=== PATIENT | male | born 1965 | race Caucasian/White ===

== ENCOUNTER → 2018-08-11 13:47 | Outpatient (POV) | payer OTHER, SELFPAY ==
[2018-08-11 13:59] VITALS: BP 115/85; PULSE 65; RESP 18; O2SAT 98
[2018-08-11 18:05] LABS: Amphetamine/Metha Screen,Urine Negative ng/mL (<1000); Barbiturates Screen,Urine Negative ng/mL (<200); Benzodiazepines Screen,Urine Negative ng/mL (<200); Cannabinoid Screen,Urine Negative ng/mL (<50); Cocaine Screen,Urine Negative ng/mL (<300); Methadone Screen,Urine Negative ng/mL (<300); Opiate Screen,Urine Negative ng/mL (<300); Phencyclidine Screen,Urine Negative ng/mL (<25)
--- NOTE | 2018-08-12 08:23 | HMH.PMCON ---
Assessment and Plan (1) Chronic pain syndrome Current visit: Yes Status: Chronic Category: Medical Code(s): G89.4 - Chronic pain syndrome (2) CRPS (complex regional pain syndrome type I) Current visit: Yes Status: Chronic Category: Medical Code(s): G90.50 - Complex regional pain syndrome I, unspecified - Assessment and plan all Dx Assessment and Plan for all problems:: We will send the patient for urine drug screen today. We will start him on gabapentin 300 mg 1 p.o. 3 times daily. I will see the patient back in 1 month reassess his symptoms at that time. I do believe he may be a potential neurostimulator candidate. He has been instructed to call the office if he has any issues prior to his next appointment. Dr. Katz has reviewed this note and agrees with this plan of care. This note was dictated using voice recognition software and may contain errors or omissions HPI - Data of Consult Consult date: 08/11/18 Requesting Physician: Lucila Freitas APRN Primary Care Provider: Devante Granados DO - Consult Narrative Reason for consult: Chronic pain History of present illness: Mr. Saravia is a 52 year old male who presents today for consultation in regards to his chronic pain. Patient had crisis [place] 3 years ago since then has had multiple surgeries he has constant pain in his shoulder on the left side since the surgeries along with right leg pain. Patient finds it difficult to do any activity. He has numbness and tingling in his left leg. Patient is tried and failed multiple medications. He rates his pain a 10 out of 10. Patient has not had any injective therapy or recent physical therapy. His pain is burning and nervelike. CC: Lucila Freitas APRN [facility] History I have reviewed the patient's past medical history: Yes Medical History: Reports:: Myocardial Infarction *Have you ever received a pneumonia vaccine?: Yes *Have you received a flu vaccine this season?: Yes - *Social History Smoking Status: Current every day smoker Tobacco Type: cigarettes # Packs/Day (cigarettes): 1 Alcohol Intake: never *Occupational Status:: other Housing: house *Travel in the last 8 weeks: None - Psychiatric History Expresses thoughts of harming self/others: None Suicide Plan Description: No Plan Family Hx:: Unable to obtain Review of Systems - Review of Systems Review of systems:: pertinent systems reviewed and negative unless documented below ROS General: no recent weight change, no fever, no sleep disturbances Respiratory: no cough, no shortness of air, no recurring pulmonary infections Cardiovascular/Peripheral Vascular: No chest pain, No palpitations, no edema, no shortness of breath. Gastrointestinal: no incontinence, normal bowel movements reported Genitourinary: no incontinence Musculoskeletal: Left shoulder pain, chronic generalized pain, right leg pain Psychiatric: Anxious Neurological: [denies weakness in extremities], [denies balance issues] Meds Home Medications Medication Instructions Recorded Confirmed Type Amlodipine Besylate [Amlodipine 10 mg PO DAILY 08/07/18 08/07/18 History 10mg Tab] Doxycycline Hyclate [Doxycycline 100 mg PO Q12 10 Days #20 tab 08/07/18 Rx Hyclate 100mg Tablet] Fluticasone/Vilanterol [Breo 0 inh INHALATION BID 08/07/18 08/07/18 History Ellipta 100-25 Mcg INH] Furosemide [Furosemide 40MG tAB] 20 mg PO BID 08/07/18 08/07/18 History Hydralazine HCl 50 mg PO DAILY 08/07/18 08/07/18 History Isosorbide Mononitrate [Imdur 60mg 60 mg PO DAILY 08/07/18 08/07/18 History ER tablet] Loratadine [Claritin 10mg Tablet] 10 mg PO DAILY 08/07/18 08/07/18 History Meloxicam 15 mg PO DAILY 08/07/18 08/07/18 History Metoprolol Succinate [Toprol Xl] 100 mg PO DAILY 08/07/18 08/07/18 History Pantoprazole Sodium [Pantoprazole 20 mg PO DAILY 08/07/18 08/07/18 History 20mg Tab] Potassium Chloride [Klor-Con 10mEq 10 meq PO DAILY 08/07/18 08/07/18 History t
--- NOTE | 2018-08-12 08:27 | P.CONS_ITS ---
Assessment and Plan (1) Chronic pain syndrome Current visit: Yes Status: Chronic Category: Medical Code(s): G89.4 - Chronic pain syndrome (2) CRPS (complex regional pain syndrome type I) Current visit: Yes Status: Chronic Category: Medical Code(s): G90.50 - Complex regional pain syndrome I, unspecified - Assessment and plan all Dx Assessment and Plan for all problems:: We will send the patient for urine drug screen today. We will start him on gabapentin 300 mg 1 p.o. 3 times daily. I will see the patient back in 1 month reassess his symptoms at that time. I do believe he may be a potential neurostimulator candidate. He has been instructed to call the office if he has any issues prior to his next appointment. Dr. Katz has reviewed this note and agrees with this plan of care. This note was dictated using voice recognition software and may contain errors or omissions HPI - Data of Consult Consult date: 08/11/18 Requesting Physician: Lucila Freitas APRN Primary Care Provider: Devante Granados DO - Consult Narrative Reason for consult: Chronic pain History of present illness: Mr. Saravia is a 52 year old male who presents today for consultation in regards to his chronic pain. Patient had crisis [place] 3 years ago since then has had multiple surgeries he has constant pain in his shoulder on the left side since the surgeries along with right leg pain. Patient finds it difficult to do any activity. He has numbness and tingling in his left leg. Patient is tried and failed multiple medications. He rates his pain a 10 out of 10. Patient has not had any injective therapy or recent physical therapy. His pain is burning and nervelike. CC: Lucila Freitas APRN [facility] History I have reviewed the patient's past medical history: Yes Medical History: Reports:: Myocardial Infarction *Have you ever received a pneumonia vaccine?: Yes *Have you received a flu vaccine this season?: Yes - *Social History Smoking Status: Current every day smoker Tobacco Type: cigarettes # Packs/Day (cigarettes): 1 Alcohol Intake: never *Occupational Status:: other Housing: house *Travel in the last 8 weeks: None - Psychiatric History Expresses thoughts of harming self/others: None Suicide Plan Description: No Plan Family Hx:: Unable to obtain Review of Systems - Review of Systems Review of systems:: pertinent systems reviewed and negative unless documented below ROS General: no recent weight change, no fever, no sleep disturbances Respiratory: no cough, no shortness of air, no recurring pulmonary infections Cardiovascular/Peripheral Vascular: No chest pain, No palpitations, no edema, no shortness of breath. Gastrointestinal: no incontinence, normal bowel movements reported Genitourinary: no incontinence Musculoskeletal: Left shoulder pain, chronic generalized pain, right leg pain Psychiatric: Anxious Neurological: [denies weakness in extremities], [denies balance issues] Meds Home Medications Medication Instructions Recorded Confirmed Type Amlodipine Besylate [Amlodipine 10 mg PO DAILY 08/07/18 08/07/18 History 10mg Tab] Doxycycline Hyclate [Doxycycline 100 mg PO Q12 10 Days #20 tab 08/07/18 Rx Hyclate 100mg Tablet] Fluticasone/Vilanterol [Breo 0 inh INHALATION BID 08/07/18 08/07/18 History Ellipta 100-25 Mcg INH] Furosemide [Furosemide 40MG tAB] 20 mg PO BID 08/07/18 08/07/18 History Hydralazine HCl 50 mg
== END ==
PROVIDERS: PCP Family Medicine; Visit Provider Clinical Nurse Specialist Family Health
DX: G89.4 Chronic pain syndrome (principal); G90.50 Complex regional pain syndrome I, unspecified; Z72.0 Tobacco use
CPT/HCPCS: 80305; 99202

== ENCOUNTER → 2018-09-15 08:50 | Outpatient (POV) | payer OTHER, SELFPAY ==
--- NOTE | 2018-09-15 09:08 | HMH.PAINSOAP ---
[facility] Pain Management SOAP Note Subjective:: Patient is a very pleasant 52-year-old male who presents today for follow-up for chronic low back pain, neck pain, shoulder pain. He reports the pain to be throbbing continuously. At last visit, the patient was given gabapentin 300 mg 1 p.o. 3 times daily. Patient says that it has helped him some, rating his pain a 9 out of 10 in comparison to 10 out of 10. He does still continue to have pain, however. Patient states I am miserable, making everyone around me miserable. I just want to feel better . He has tried and failed multiple medications. The patient says he does not want to get addicted to any type of opiate. The patient is interested in a spinal cord stimulator. Patient has been continuing a home stretching program and NSAIDs. [facility] #[id number] and urine drug screen has been reviewed and is appropriate. ROS General: no recent weight change, no fever, no sleep disturbances Respiratory: no cough, no shortness of air, no recurring pulmonary infections Cardiovascular/Peripheral Vascular: No chest pain, No palpitations, no edema, no shortness of breath. Gastrointestinal: no incontinence, normal bowel movements reported Genitourinary: no incontinence Musculoskeletal: Low back pain, neck pain, bilateral shoulder pain Psychiatric: normal mood/ affect, [denies depression], [denies anxiety] Neurological: [denies weakness in extremities], [denies balance issues] Objective:: Physical Exam General: Alert and oriented x3, no acute distress, pleasant and cooperative, [on room air] Lungs: Resps E/U, Symmetrical chest expansion, Eyes: PERRL Musculoskeletal: Flexion and extension of lumbar and cervical spine somewhat guarded secondary to pain, deep tendon reflexes normal, strength in upper and lower extremities [5/5], normal gait noted Neurological: speech clear, conduit mechanic equal, no gross sensory deficits Assessment:: Chronic pain syndrome, CRPS type I Plan:: We had a thorough discussion of a spinal cord stimulator. We will schedule the patient for a psychological evaluation. Also increase the patient's gabapentin to 300 mg 1 tablet p.o. 4 times daily. We will see the patient back after his psychological evaluation. He is been instructed to call the office if he had any concerns prior to the next visit. Patient will continue home stretching program and NSAIDs. Dr. Katz has reviewed this note and agrees with this plan of care. This note was dictated using voice recognition software and may contain errors or omissions
--- NOTE | 2018-09-15 09:12 | P.CONS_ITS ---
[facility] Pain Management SOAP Note Subjective:: Patient is a very pleasant 52-year-old male who presents today for follow-up for chronic low back pain, neck pain, shoulder pain. He reports the pain to be throbbing continuously. At last visit, the patient was given gabapentin 300 mg 1 p.o. 3 times daily. Patient says that it has helped him some, rating his pain a 9 out of 10 in comparison to 10 out of 10. He does still continue to have pain, however. Patient states I am miserable, making everyone around me miserable. I just want to feel better . He has tried and failed multiple medications. The patient says he does not want to get addicted to any type of opiate. The patient is interested in a spinal cord stimulator. Patient has be en continuing a home stretching program and NSAIDs. [facility] #[id number] and urine drug screen has been reviewed and is appropriate. ROS General: no recent weight change, no fever, no sleep disturbances Respiratory: no cough, no shortness of air, no recurring pulmonary infections Cardiovascular/Peripheral Vascular: No chest pain, No palpitations, no edema, no shortness of breath. Gastrointestinal: no incontinence, normal bowel movements reported Genitourinary: no incontinence Musculoskeletal: Low back pain, neck pain, bilateral shoulder pain Psychiatric: normal mood/ affect, [denies depression], [denies anxiety] Neurological: [denies weakness in extremities], [denies balance issues] Objective:: Physical Exam General: Alert and oriented x3, no acute distress, pleasant and cooperative, [on room air] Lungs: Resps E/U, Symmetrical chest expansion, Eyes: PERRL Musculoskeletal: Flexion and extension of lumbar and cervical spine somewhat guarded secondary to pain, deep tendon reflexes normal, strength in upper and lower extremities [5/5], normal gait noted Neurological: speech clear, postal mail carrier equal, no gross sensory deficits Assessment:: Chronic pain syndrome, CRPS type I Plan:: We had a thorough discussion of a spinal cord stimulator. We will schedule the patient for a psychological evaluation. Also increase the patient's gabapentin to 300 mg 1 tablet p.o. 4 times daily. We will see the patient back after his psychological evaluation. He is been instructed to call the office if he had any concerns prior to the next visit. Patient will continue home stretching program and NSAIDs. Dr. Katz has reviewed this note and agrees with this plan of care. This note was dictated using voice recognition software and may contain errors or omissions
[2018-09-15 09:16] VITALS: BP 129/75; PULSE 78; RESP 18; O2SAT 98; BMI 47.5
--- NOTE | 2018-11-11 14:43 | PC.NURSE ---
2 REFILLS FOR GABAPENTIN 300MG QID CALLED INTO [facility] PER PROVIDER ORDER
== END ==
PROVIDERS: Visit Provider Clinical Nurse Specialist Family Health
DX: G89.4 Chronic pain syndrome (principal); G90.50 Complex regional pain syndrome I, unspecified
CPT/HCPCS: 99212

== ENCOUNTER → 2018-12-12 12:20 | Outpatient (POV) | payer OTHER, SELFPAY ==
[2018-12-12 12:26] VITALS: BP 158/94; PULSE 95; RESP 26; O2SAT 95; BMI 46.7
--- NOTE | 2018-12-12 12:32 | P.CONS_ITS ---
[facility] Pain Management SOAP Note Subjective:: This patient's pleasant 53-year-old white male who we are treating for low back pain with lumbar radicular symptoms. He does also have some shoulder pain which needs to be evaluated by orthopedics. However for his low back pain and lumbar radicular symptoms he did get great relief. He has failed all previous conservative therapy including injections, oral medications, physical therapy and is not a surgical candidate. He underwent spinal cord stimulator trial with 80 to 90% relief in pain symptoms. He was much more functional. He was sleeping better and walking better. He presents for lead pull today. He wants to proceed with permanent placement. Objective:: Alert and oriented x3 no acute distress. Patient does have an antalgic gait. Motor strength of the lower extremities is 5/5. There is no gross sensory deficit. Leads were pulled intact with no signs of infection. Assessment:: Degenerative disc disease of lumbar spine with lumbar radiculopathy symptoms with successful spinal cord stimulator trial Plan:: We will plan on permanent placement of spinal cord stimulator on January 07. Lead placement will be at T7-T8-T9. This will be a Nuvectra system. [facility] History I have reviewed the patient's past medical history: Yes Medical History: Reports:: Congestive Heart Failure, Chronic Obstructive Pulmonary Disease (COPD), Coronary Artery Disease, Gastroesophageal Reflux Disease(GERD), Hypertension, Myocardial Infarction, Seizures (2010) Denies:: Cancer, Diabetes Mellitus Type 1, Diabetes Mellitus Type 2, Internal Pacemaker, MRSA *Have you ever received a pneumonia vaccine?: No *Have you received a flu vaccine this season?: No Other Medical History: Denies: Blood Transfusion Reaction Laterality Cases: Right: Arthroscopy Shoulder Other Surgeries: No: Pacemaker Amputation: No Fractures: No - *Social History Smoking Status: Former smoker Tobacco Type: cigarettes # Packs/Day (cigarettes): 2 #Yrs smoked (if former smoker): 30 Alcohol Intake: never Substance Use Type: denies use *Occupational Status:: other Housing: house Household Members: family *Travel in the last 8 weeks: None Family Hx:: Unable to obtain
== END ==
PROVIDERS: Visit Provider Anesthesiology
DX: M54.5 Low back pain (principal); M54.16 Radiculopathy, lumbar region; M25.519 Pain in unspecified shoulder; Z45.49 Encounter for adjustment and management of other implanted nervous system device
CPT/HCPCS: 99212

== ENCOUNTER → 2019-01-13 09:20 | Outpatient (POV) | payer OTHER, SELFPAY ==
--- NOTE | 2019-01-13 09:44 | HMH.PAINSOAP ---
[facility] Pain Management SOAP Note Subjective:: Patient is a pleasant 53-year-old white male who presents today for follow-up. He is being treated for low back pain with lumbar radicular symptoms. Patient also has left shoulder pain which he says he needs surgery for, however, he is unable to afford the surgery at this time. He also says his insurance will not cover the procedure. Patient has tried multiple conservative modalities such as ice and heat therapies, TENS unit, physical therapy for greater than 6 weeks, and a home stretching program. Patient is also continuing with anti-inflammatories and home stretching program. Patient has had injective therapy, along with a spinal cord stimulator trial. Patient did get 80 to 90% relief following his spinal cord stimulator trial. Patient is also had a psychological evaluation. Patient would like to proceed with a spinal cord stimulator trial. Unfortunately, he was denied by his insurance. The patient would like to follow-up with a neurosurgeon to see if he is a surgical candidate. Is not on any anticoagulation therapy. Review of Systems General: No recent weight changes, no fever, no sleep disturbances Respiratory: No cough, no shortness of air, no recurring pulmonary infections Cardiovascular/peripheral vascular: No chest pain, no palpitations, no edema, no shortness of breath Gastrointestinal: No new onset incontinence, normal bowel movements reported Genitourinary: No new onset incontinence Musculoskeletal: Back pain, left shoulder pain Psychiatric: Normal mood/affect Neurological: [Denies weakness in extremities], [denies balance issues] Objective:: Physical exam General: Alert and oriented x3, no acute distress, pleasant and cooperative, [on room air] Lungs: Respirations even and unlabored, symmetrical chest expansion Eyes: PERRL Musculoskeletal: Flexion and extension of lumbar spine somewhat guarded secondary to pain, deep tendon reflexes normal, strength in upper and lower extremities [5/5], [abnormal gait noted] Neurological: Speech clear, price analyst equal, no gross sensory deficit Assessment:: Degenerative disc disease of lumbar spine with lumbar radiculopathy symptoms Plan:: We will for the patient to neurosurgeon to determine if the patient is a surgical candidate. We will also increase the patient's gabapentin to 400 mg 1 tablet p.o. 4 times daily. We will see the patient back in the clinic following his appointment with neurosurgery to discuss the plan of care. He has been instructed to contact the clinic if he has any concerns before his next appointment. Since [facility] #[id number] has been reviewed and is appropriate. Dr. Katz has reviewed this note and agrees with this plan of care. This note was dictated using voice recognition software and make contain errors or omissions. [facility] History I have reviewed the patient's past medical history: Yes Medical History: Reports:: Congestive Heart Failure, Chronic Obstructive Pulmonary Disease (COPD), Coronary Artery Disease, Gastroesophageal Reflux Disease(GERD), Hypertension, Myocardial Infarction, Seizures (2010) Denies:: Cancer, Diabetes Mellitus Type 1, Diabetes Mellitus Type 2, Internal Pacemaker, MRSA *Have you ever received a pneumonia vaccine?: No *Have you received a flu vaccine this season?: No Other Medical History: Denies: Blood Transfusion Reaction Laterality Cases: Right: Arthroscopy Shoulder Other Surgeries: Yes: No Previous Surgery. No: Pacemaker Amputation: No Fractures: No - *Social History Educational Level: Attended High School Smoking Status: Former smoker Tobacco Type: cigarettes # Packs/Day (cigarettes): 2 #Yrs smoked (if former smoker): 30 Alcohol Intake: never Substance Use Type: denies use *Occupational Status:: other Housing: house Household Members: family *Travel in the last 8 weeks: Inside the [facility] Family Hx:: Unable to obtain
--- NOTE | 2019-01-13 09:48 | P.CONS_ITS ---
[facility] Pain Management SOAP Note Subjective:: Patient is a pleasant 53-year-old white male who presents today for follow-up. He is being treated for low back pain with lumbar radicular symptoms. Patient also has left shoulder pain which he says he needs surgery for, however, he is unable to afford the surgery at this time. He also says his insurance will not cover the procedure. Patient has tried multiple conservative modalities such as ice and heat therapies, TENS unit, physical therapy for greater than 6 weeks, and a home stretching program. Patient is also continuing with anti- inflammatories and home stretching program. Patient has had injective therapy, along with a spinal cord stimulator trial. Patient did get 80 to 90% relief following his spinal cord stimulator trial. Patient is also had a psychological evaluation. Patient would like to proceed with a spinal cord stimulator trial. Unfortunately, he was denied by his insurance. The patient would like to follow-up with a neurosurgeon to see if he is a surgical candidate. Is not on any anticoagulation therapy. Review of Systems General: No recent weight changes, no fever, no sleep disturbances Respiratory: No cough, no shortness of air, no recurring pulmonary infections Cardiovascular/peripheral vascular: No chest pain, no palpitations, no edema, no shortness of breath Gastrointestinal: No new onset incontinence, normal bowel movements reported Genitourinary: No new onset incontinence Musculoskeletal: Back pain, left shoulder pain Psychiatric: Normal mood/affect Neurological: [Denies weakness in extremities], [denies balance issues] Objective:: Physical exam General: Alert and oriented x3, no acute distress, pleasant and cooperative, [on room air] Lungs: Respirations even and unlabored, symmetrical chest expansion Eyes: PERRL Musculoskeletal: Flexion and extension of lumbar spine somewhat guarded secondary to pain, deep tendon reflexes normal, strength in upper and lower extremities [5/5], [abnormal gait noted] Neurological: Speech clear, quality associate equal, no gross sensory deficit Assessment:: Degenerative disc disease of lumbar spine with lumbar radiculopathy symptoms Plan:: We will for the patient to neurosurgeon to determine if the patient is a surgi ji candidate. We will also increase the patient's gabapentin to 400 mg 1 tablet p.o. 4 times daily. We will see the patient back in the clinic following his appointment with neurosurgery to discuss the plan of care. He has been instructed to contact the clinic if he has any concerns before his next appointment. Since [facility] #[id number] has been reviewed and is appropriate. Dr. Katz has reviewed this note and agrees with this plan of care. This note was dictated using voice recognition software and make contain errors or omissions. [facility] History I have reviewed the patient's past medical history: Yes Medical History: Reports:: Congestive Heart Failure, Chronic Obstructive Pulmonary Disease (COPD), Coronary Artery Disease, Gastroesophageal Reflux Disease(GERD), Hypertension, Myocardial Infarction, Seizures (2010) Denies:: Cancer, Diabetes Mellitus Type 1, Diabetes Mellitus Type 2, Internal Pacemaker, MRSA *Have you ever received a pneumonia vaccine?: No *Have you received a flu vaccine this season?: No Other Medical History: Denies: Blood Transfusion Reaction Laterality Cases: Right: Arthroscopy Shoulder Other Surgeries: Yes: No Previous Surgery. No: Pacemaker Amputation: No Fractures: No - *Social History Educational Level: Attended High School Smoking Status: Former smoker Tobacco Type: cigarettes
[2019-01-13 09:49] VITALS: BP 177/98; PULSE 85; RESP 18; O2SAT 99; BMI 47.5
== END ==
PROVIDERS: PCP Family Medicine; Visit Provider Clinical Nurse Specialist Family Health
DX: M51.16 Intervertebral disc disorders with radiculopathy, lumbar region (principal)
CPT/HCPCS: 99212

== ENCOUNTER → 2019-03-02 08:18 | Outpatient (POV) | payer OTHER, SELFPAY ==
[2019-03-02 08:45] VITALS: BP 157/98; PULSE 71; RESP 18; O2SAT 99; BMI 44.9
--- NOTE | 2019-03-02 09:48 | HMH.PAINSOAP ---
[facility] Pain Management SOAP Note Subjective:: Patient is a pleasant 53-year-old white male who presents today for follow-up after surgical consultation. At this time the patient does not want to move forward with any surgery. Patient had a successful neurostimulator trial. Patient has had 80 to 90% relief of his symptoms. Most of his pain and is in his low back and his bilateral legs. He has autonomic symptoms including swelling of the bilateral lower extremities, color changes, temperature changes of the bilateral lower extremities. He rates his pain 8 out of 10 it is constant. He is tried and failed over 12 months of conservative therapies that include injective therapies, anti-inflammatories, anticonvulsants, medications, physical therapy. He still trying to do a home stretching program however it is becoming more more difficult. Patient has been on Xarelto but he does have permission to come off prior to his procedure. Patient would like to move forward with a permanent neurostimulator implant. Patient has no active infections. Patient is suffered from this pain for over 5 years. It is continually getting worse. He is now also suffering from diabetic neuropathy. ROS General: no recent weight change, no fever, no sleep disturbances Respiratory: no cough, no shortness of air, no recurring pulmonary infections Cardiovascular/Peripheral Vascular: No chest pain, No palpitations, no edema, no shortness of breath. Gastrointestinal: no new onset incontinence, normal bowel movements reported Genitourinary: no new onset incontinence Musculoskeletal: Back pain, leg pain Psychiatric: normal mood/ affect, Neurological: Bilateral lower extremity numbness, [denies new onset balance issues] Objective:: Physical Exam General: Alert and oriented x3, no acute distress, pleasant and cooperative, [on room air] Lungs: Resps E/U, Symmetrical chest expansion, Eyes: PERRL Musculoskeletal: Flexion and extension of lumbar spine somewhat guarded secondary to pain, deep tendon reflexes normal, strength in upper and lower extremities [5/5], [abnormal gait noted] Neurological: speech clear, tyre fitter equal, decreased sensation bilateral lower extremities Assessment:: Degenerative disc disease lumbar spine with lumbar radiculopathy, CRPS type II, diabetic neuropathy Plan:: We will try to get approval for permanent placement at T7-T8-T9. We will use the [employer] system due to this specific capability. I will follow-up with the patient after his permanent implant reassess his symptoms at the time he is been instructed to call the office if he has any issues prior to his next appointment. He also has an appropriate psychological evaluation. So given his CRPS type II, his appropriate psychological evaluation, his pain over 12 months, his failure of conservative therapies, his decrease in functionality, and successful neurostimulator trial previously I do believe he would be a good candidate for a permanent implant Dr. Katz has reviewed this note and agrees with this plan of care. This note was dictated using voice recognition software and may contain errors or omissions [facility] History I have reviewed the patient's past medical history: Yes Medical History: Reports:: Congestive Heart Failure, Chronic Obstructive Pulmonary Disease (COPD), Coronary Artery Disease, Gastroesophageal Reflux Disease(GERD), Hypertension, Myocardial Infarction, Seizures (2010) Denies:: Cancer, Diabetes Mellitus Type 1, Diabetes Mellitus Type 2, Internal Pacemaker, MRSA *Have you ever received a pneumonia vaccine?: Yes *Have you received a flu vaccine this season?: Yes Other Medical History: Denies: Blood Transfusion Reaction Laterality Cases: Right: Arthroscopy Shoulder Other Surgeries: Yes: No Previous Surgery. No: Pacemaker Amputation: No Fractures: No - *Social History Smoking Status: Former smoker Tobacco Type: cigarettes # Packs/Day (cigarettes): 2 #Yrs
--- NOTE | 2019-03-02 09:51 | P.CONS_ITS ---
[facility] Pain Management SOAP Note Subjective:: Patient is a pleasant 53-year-old white male who presents today for follow-up after surgical consultation. At this time the patient does not want to move forward with any surgery. Patient had a successful neurostimulator trial. Patient has had 80 to 90% relief of his symptoms. Most of his pain and is in his low back and his bilateral legs. He has autonomic symptoms including swelling of the bilateral lower extremities, color changes, temperature changes of the bilateral lower extremities. He rates his pain 8 out of 10 it is constant. He is tried and failed over 12 months of conservative therapies that include injective therapies, anti-inflammatories, anticonvulsants, medications, physical therapy. He still trying to do a home stretching program however it is becoming more more difficult. Patient has been on Xarelto but he does have permission to come off prior to his procedure. Patient would like to move forward with a permanent neurostimulator implant. Patient has no active infections. Patient is suffered from this pain for over 5 years. It is continually getting worse. He is now also suffering from diabetic neuropathy. ROS General: no recent weight change, no fever, no sleep disturbances Respiratory: no cough, no shortness of air, no recurring pulmonary infections Cardiovascular/Peripheral Vascular: No chest pain, No palpitations, no edema, no shortness of breath. Gastrointestinal: no new onset incontinence, normal bowel movements reported Genitourinary: no new onset incontinence Musculoskeletal: Back pain, leg pain Psychiatric: normal mood/ affect, Neurological: Bilateral lower extremity numbness, [denies new onset balance issues] Objective:: Physical Exam General: Alert and oriented x3, no acute distress, pleasant and cooperative, [on room air] Lungs: Resps E/U, Symmetrical chest expansion, Eyes: PERRL Musculoskeletal: Flexion and extension of lumbar spine somewhat guarded secondary to pain, deep tendon reflexes normal, strength in upper and lower extremities [5/5], [abnormal gait noted] Neurological: speech clear, felt hat mellowing machine operator equal, decreased sensation bilateral lower extremities Assessment:: Degenerative disc disease lumbar spine with lumbar radiculopathy, CRPS type II, diabetic neuropathy Plan:: We will try to get approval for permanent placement at [id number]-T9. We will use the [employer] system due to this specific capability. I will follow-up with the patient after his permanent implant reassess his symptoms at the time he is been instructed to call the office if he has any issues prior to his next appointment. He also has an appropriate psychological evaluation. So given his CRPS type II, his appropriate psychological evaluation, his pain over 12 months, his failure of conservative therapies, his decrease in functionality, and successful neurostimulator trial previously I do believe he would be a good candidate for a permanent implant Dr. Katz has reviewed this note and agrees with this plan of care. This note was dictated using voice recognition software and may contain errors or omissions [facility] History I have reviewed the patient's past medical history: Yes Medical History: Reports:: Congestive Heart Failure, Chronic Obstructive Pulmonary Disease (COPD), Coronary Artery Disease, Gastroesophageal Reflux Disease(GERD), Hypertension, Myocardial Infarction, Seizures (2010) Denies:: Cancer, Diabetes Mellitus Type 1, Diabetes Mellitus Type 2, Internal Pacemaker, MRSA *Have you ever received a pneumonia vaccine?: Yes *Have you received a flu vaccine thi
== END ==
PROVIDERS: PCP Pediatrics; Visit Provider Clinical Nurse Specialist Family Health
DX: M51.16 Intervertebral disc disorders with radiculopathy, lumbar region (principal); G57.70 Causalgia of unspecified lower limb; E11.40 Type 2 diabetes mellitus with diabetic neuropathy, unspecified
CPT/HCPCS: 99212

== ENCOUNTER → 2019-03-19 08:33 | Outpatient (POV) | payer OTHER, SELFPAY ==
[2019-03-19 09:14] VITALS: BP 158/98; PULSE 68; RESP 18; BMI 44.9
--- NOTE | 2019-03-19 09:14 | P.CONS_ITS ---
[facility] Pain Management SOAP Note Subjective:: Patient is a pleasant 53-year-old white male who presents today for follow-up after a spinal cord stimulator placement. Patient is being treated for low back pain with lumbar radiculopathy symptoms, as well as CRPS type II of his lower extremities. He is failed all conservative measures of injections, physical therapy, and oral medications. Patient was not considered a surgical candidate. Patient is here today to discuss possible reprogramming. Patient states he is doing much better following his stimulator placement. He does rate his pain a 9 out of 10 today, however, he says that he is getting much more relief to his low back area. Patient says he has not had this much pain relief in a long time. He is continuing with anti-inflammatories and a home stretching program. He is also taking gabapentin 400 mg 1 tablet p.o. 4 times daily. Review of Systems General: No recent weight changes, no fever, no sleep disturbances Respiratory: No cough, no shortness of air, no recurring pulmonary infections Cardiovascular/peripheral vascular: No chest pain, no palpitations, no edema, no shortness of breath Gastrointestinal: No new onset incontinence, normal bowel movements reported Genitourinary: No new onset incontinence Musculoskeletal: Low back pain, bilateral leg pain Psychiatric: Normal mood/affect Neurological: [Denies weakness in extremities], [denies balance issues] Objective:: Physical exam General: Alert and oriented x3, no acute distress, pleasant and cooperative, [on room air] Lungs: Respirations even and unlabored, symmetrical chest expansion Eyes: PERRL Musculoskeletal: Flexion and extension of lumbar spine somewhat guarded s econdary to pain, deep tendon reflexes normal, strength in upper and lower extremities [5/5], [abnormal gait noted] Neurological: Speech clear, supervisor pipelines equal, no gross sensory deficit Assessment:: Degenerative disc disease lumbar spine with lumbar radiculopathy, CRPS type II Plan:: We will remove the patient's wound VAC today. We will schedule him for a follow-up in 1 week to remove his sutures. He is awaiting to meet with a spinal cord stimulator reprogramming with the spinal cord stimulator route service representative. He will continue with anti-inflammatories and home stretching program. Dr. Katz has reviewed this note and agrees with this plan of care. This note was dictated using voice recognition software and make contain errors or omissions. [facility] History I have reviewed the patient's past medical history: Yes Medical History: Reports:: Congestive Heart Failure, Chronic Obstructive Pulmonary Disease (COPD), Coronary Artery Disease, Diabetes Mellitus Type 2, Gastroesophageal Reflux Disease(GERD), Hypertension, Myocardial Infarction, Seizures (2010) Denies:: Cancer, Diabetes Mellitus Type 1, Internal Pacemaker, MRSA *Have you ever received a pneumonia vaccine?: No *Have you received a flu vaccine this season?: Yes Other Medical History: Denies: Blood Transfusion Reaction Laterality Cases: Right: Arthroscopy Shoulder Other Surgeries: Yes: No Previous Surgery. No: Pacemaker Amputation: No Fractures: No - *Social History Smoking Status: Former smoker Tobacco Type: cigarettes # Packs/Day (cigarettes): 2 #Yrs smoked (if former smoker): 30 Alcohol Intake: never Substance Use Type: denies use *Occupational Status:: disabled, other Housing: house Household Members: family *Travel in the last 8 weeks: None Family Hx:: Unable to obtain
== END ==
PROVIDERS: Visit Provider Clinical Nurse Specialist Family Health
DX: M51.16 Intervertebral disc disorders with radiculopathy, lumbar region (principal); G90.50 Complex regional pain syndrome I, unspecified
CPT/HCPCS: 99212

== ENCOUNTER → 2019-04-06 13:32 | Outpatient (POV) | payer OTHER, SELFPAY ==
--- NOTE | 2019-04-06 13:57 | HMH.PAINSOAP ---
[facility] Pain Management SOAP Note Subjective:: Patient is a pleasant 53-year-old white male who presents today for follow-up after neurostimulator placement. Patient is doing extremely well he rates his pain a 0 out of 10. He does not need any adjustments today. His stitches were removed and his incisions are well approximated. No sign symptoms of infection. ROS General: no recent weight change, no fever, no sleep disturbances Respiratory: no cough, no shortness of air, no recurring pulmonary infections Cardiovascular/Peripheral Vascular: No chest pain, No palpitations, no edema, no shortness of breath. Gastrointestinal: no new onset incontinence, normal bowel movements reported Genitourinary: no new onset incontinence Musculoskeletal: Back pain, leg pain at times Psychiatric: normal mood/ affect Neurological: [denies new onset weakness in extremities], [denies new onset balance issues] Objective:: Physical Exam General: Alert and oriented x3, no acute distress, pleasant and cooperative, [on room air] Lungs: Resps E/U, Symmetrical chest expansion, Eyes: PERRL Musculoskeletal: Flexion and extension of lumbar spine somewhat guarded secondary to pain, deep tendon reflexes normal, strength in upper and lower extremities [5/5], antalgic gait noted Neurological: speech clear, design director equal, no gross sensory deficits Assessment:: Degenerative disc disease lumbar spine with lumbar radiculopathy and CRPS type II Plan:: We will see the patient back in 1 month reassess his symptoms at that time he is been instructed to call the office if he has any issues prior to his next appointment. Dr. Katz has reviewed this note and agrees with this plan of care. This note was dictated using voice recognition software and may contain errors or omissions [facility] History I have reviewed the patient's past medical history: Yes Medical History: Reports:: Congestive Heart Failure, Chronic Obstructive Pulmonary Disease (COPD), Coronary Artery Disease, Diabetes Mellitus Type 2, Gastroesophageal Reflux Disease(GERD), Hypertension, Myocardial Infarction, Seizures (2010) Denies:: Cancer, Diabetes Mellitus Type 1, Internal Pacemaker, MRSA *Have you ever received a pneumonia vaccine?: Yes *Have you received a flu vaccine this season?: Yes Other Medical History: Denies: Blood Transfusion Reaction Laterality Cases: Right: Arthroscopy Shoulder Other Surgeries: Yes: No Previous Surgery. No: Pacemaker Amputation: No Fractures: No - *Social History Smoking Status: Former smoker Tobacco Type: cigarettes # Packs/Day (cigarettes): 2 #Yrs smoked (if former smoker): 30 Alcohol Intake: never Substance Use Type: denies use *Occupational Status:: other Housing: house Household Members: family *Travel in the last 8 weeks: None Family Hx:: Unable to obtain
[2019-04-06 14:03] VITALS: BP 135/85; PULSE 85; RESP 18; O2SAT 98; BMI 40.6
== END ==
PROVIDERS: PCP Urology; Visit Provider Clinical Nurse Specialist Family Health
DX: M51.16 Intervertebral disc disorders with radiculopathy, lumbar region (principal); G90.50 Complex regional pain syndrome I, unspecified; J44.9 Chronic obstructive pulmonary disease, unspecified; I25.10 Atherosclerotic heart disease of native coronary artery without angina pectoris; E11.9 Type 2 diabetes mellitus without complications; K21.9 Gastro-esophageal reflux disease without esophagitis; I10 Essential (primary) hypertension; I25.2 Old myocardial infarction; Z87.891 Personal history of nicotine dependence
CPT/HCPCS: 99212

== ENCOUNTER → 2019-05-04 12:54 | Outpatient (POV) | payer OTHER, SELFPAY ==
[2019-05-04 13:42] VITALS: BP 145/85; PULSE 85; RESP 18; O2SAT 99; BMI 40.6
--- NOTE | 2019-05-04 13:56 | HMH.PAINSOAP ---
[facility] Pain Management SOAP Note Subjective:: Patient is a pleasant 53-year-old white male who presents today for follow-up. Patient had a neurostimulator placed for lower back pain and leg pain. Patient has 0 pain in his back. His only pain today is his left shoulder. He has a chronic dislocation. Patient has not seen orthopedics for this. I will send him for an Ortho evaluation. Overall the patient states that he is much more active he does not have pain and is able to do more activities of daily living. ROS General: no recent weight change, no fever, no sleep disturbances Respiratory: no cough, no shortness of air, no recurring pulmonary infections Cardiovascular/Peripheral Vascular: No chest pain, No palpitations, no edema, no shortness of breath. Gastrointestinal: no new onset incontinence, normal bowel movements reported Genitourinary: no new onset incontinence Musculoskeletal: Left shoulder pain Psychiatric: normal mood/ affect Neurological: [denies new onset weakness in extremities], [denies new onset balance issues] Objective:: Physical Exam General: Alert and oriented x3, no acute distress, pleasant and cooperative, [on room air] Lungs: Resps E/U, Symmetrical chest expansion, Eyes: PERRL Musculoskeletal: Range of motion left shoulder somewhat guarded secondary to pain, deep tendon reflexes normal, strength in upper and lower extremities [5/5], normal gait noted Neurological: speech clear, media aid equal, no gross sensory deficits Assessment:: Left shoulder pain, degenerative disc disease lumbar spine with lumbar radiculopathy along with CRPS type II Plan:: We will see the patient back in 3 months reassess his symptoms at that time he is been instructed to call the office if he has any issues prior to his next appointment. We will also send him to Dr. David for consultation in regards to his left shoulder pain. Dr. Katz has reviewed this note and agrees with this plan of care. This note was dictated using voice recognition software and may contain errors or omissions [facility] History I have reviewed the patient's past medical history: Yes Medical History: Reports:: Congestive Heart Failure, Chronic Obstructive Pulmonary Disease (COPD), Coronary Artery Disease, Diabetes Mellitus Type 2, Gastroesophageal Reflux Disease(GERD), Hypertension, Myocardial Infarction, Seizures (2010) Denies:: Cancer, Diabetes Mellitus Type 1, Internal Pacemaker, MRSA *Have you ever received a pneumonia vaccine?: Yes *Have you received a flu vaccine this season?: Yes Other Medical History: Denies: Blood Transfusion Reaction Laterality Cases: Right: Arthroscopy Shoulder Other Surgeries: Yes: No Previous Surgery. No: Pacemaker Amputation: No Fractures: No - *Social History Smoking Status: Former smoker Tobacco Type: cigarettes # Packs/Day (cigarettes): 2 #Yrs smoked (if former smoker): 30 Alcohol Intake: never Substance Use Type: denies use *Occupational Status:: other Housing: house Household Members: family *Travel in the last 8 weeks: None Family Hx:: Unable to obtain
--- NOTE | 2019-07-23 13:07 | PC.NURSE ---
Gabapentin 400mg qid with 3 refills called into [facility] [place] per provider order
== END ==
PROVIDERS: Visit Provider Clinical Nurse Specialist Family Health
DX: M25.512 Pain in left shoulder (principal); M51.16 Intervertebral disc disorders with radiculopathy, lumbar region; G90.50 Complex regional pain syndrome I, unspecified
CPT/HCPCS: 99212

== ENCOUNTER → 2020-07-04 09:07 | Outpatient (POV) | payer OTHER, SELFPAY ==
--- NOTE | 2020-07-04 09:43 | HMH.PAINSOAP ---
[facility] Pain Management SOAP Note Subjective:: Patient is a pleasant 54-year-old white male who presents today for follow-up. Patient had a [facility] stimulator. He states that it does not work for him. He states that he is tried to contact the telecommunications sales representative multiple times with no success. Patient is interested in getting it removed. Patient is currently on gabapentin 600 mg 1 p.o. 3 times daily. He states that he would like it increased a little bit. Patient states it is a very helpful for him. [facility] #[id number] reviewed and appropriate. ROS General: no recent weight change, no fever, no sleep disturbances Respiratory: no cough, no shortness of air, no recurring pulmonary infections Cardiovascular/Peripheral Vascular: No chest pain, No palpitations, no edema, no shortness of breath. Gastrointestinal: no new onset incontinence, normal bowel movements reported Genitourinary: no new onset incontinence Musculoskeletal: Back pain, leg pain Psychiatric: normal mood/ affect Neurological: [denies new onset weakness in extremities], [denies new onset balance issues] Objective:: Physical Exam General: Alert and oriented x3, no acute distress, pleasant and cooperative, [on room air] Lungs: Resps E/U, Symmetrical chest expansion, Eyes: PERRL Musculoskeletal: Flexion and extension of lumbar spine somewhat guarded secondary to pain, deep tendon reflexes normal, strength in upper and lower extremities [5/5], [abnormal gait noted] Neurological: speech clear, immigration manager equal, no gross sensory deficits Assessment:: Degenerative disc disease lumbar spine lumbar radiculopathy along with CRPS type II Plan:: We will increase his gabapentin 600 mg to 4 times a day. We will give him 3 months worth of medication. We will see him back in 3 months. We will also set him up with Dr. Mazariegos more to have his neurostimulator removed. Dr. Katz has reviewed this note and agrees with this plan of care. This note was dictated using voice recognition software and may contain errors or omissions [facility] History I have reviewed the patient's past medical history: Yes Medical History: Reports:: Congestive Heart Failure, Chronic Obstructive Pulmonary Disease (COPD), Coronary Artery Disease, Diabetes Mellitus Type 2, Gastroesophageal Reflux Disease(GERD), Hypertension, Myocardial Infarction, Seizures (2010) Denies:: Cancer, Diabetes Mellitus Type 1, Internal Pacemaker, MRSA *Have you ever received a pneumonia vaccine?: Yes *Have you received a flu vaccine this season?: Yes Other Medical History: Denies: Blood Transfusion Reaction Laterality Cases: Right: Arthroscopy Shoulder Other Surgeries: Yes: No Previous Surgery. No: Pacemaker Amputation: No Fractures: No - *Social History Smoking Status: Former smoker Tobacco Type: cigarettes # Packs/Day (cigarettes): 2 #Yrs smoked (if former smoker): 30 Alcohol Intake: never Substance Use Type: denies use *Occupational Status:: other Housing: house Household Members: family *Travel in the last 8 weeks: None Family Hx:: Unable to obtain
[2020-07-04 10:10] VITALS: BP 141/71; PULSE 69; RESP 18; O2SAT 98; BMI 41.5
== END ==
PROVIDERS: Visit Provider Clinical Nurse Specialist Family Health
DX: M51.16 Intervertebral disc disorders with radiculopathy, lumbar region (principal)
CPT/HCPCS: 99212; G0463

== ENCOUNTER → 2020-10-06 09:27 | Outpatient (POV) | payer OTHER, SELFPAY ==
[2020-10-06 09:38] VITALS: BP 177/96; PULSE 76; RESP 18; O2SAT 95; BMI 42.5
--- NOTE | 2020-10-06 10:38 | [facility].PAINSOAP ---
[facility] Pain Management SOAP Note Subjective:: Patient is a 54-year-old white male who presents today for follow-up and to meet with the [employer] spinal cord stimulator medical representative. 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 He rates his pain a 7 out of 10. He states his stimulator is not working at this time. Patient is requesting a change out of the device. He says he needs a new battery . Patient has not been reprogrammed recently. He and I discussed the issues that he is having. Patient says that his device is not charging appropriately. He does report programming layer out. This is what seems to be his issue at this time, not in the battery. He is also managed with gabapentin 600 mg 1 tablet p.o. 3 times daily. Patient says today, I want my gabapentin increased to 800 mg 1 tablet p.o. 3 times daily . The patient's Jason #[id number] has been reviewed and is appropriate. Drug screens have been appropriate. He has been advised we will not increase his dose at this time of gabapentin to 800 mg, however, can increase him to 5 times a day for the next 3 months until he is able to get his device working properly again. He will need to decrease with his gabapentin, however, once the device is working properly again. The medical representative is here today to meet with him. Review of Systems General: No recent weight changes, no fever, no sleep disturbances Respiratory: No cough, no shortness of air, no recurring pulmonary infections Cardiovascular/peripheral vascular: No chest pain, no palpitations, no edema, no shortness of breath Gastrointestinal: No new onset incontinence, normal bowel movements reported Genitourinary: No new onset incontinence Musculoskeletal: Low back pain and lower extremity pain bilaterally Psychiatric: Normal mood/affect Neurological: [Denies weakness in extremities], [denies balance issues] Objective:: Physical exam General: Alert and oriented x3, no acute distress, pleasant and cooperative, [on room air] Lungs: Respirations even and unlabored, symmetrical chest expansion Eyes: PERRL Musculoskeletal: Flexion and extension of [] lumbar spine somewhat guarded secondary to pain, deep tendon reflexes normal, strength in upper and lower extremities [5/5], [abnormal gait noted] Neurological: Speech clear, steel tier equal, no gross sensory deficit Assessment:: Degenerative disc disease lumbar spine with lumbar radiculopathy symptoms, CRPS type II lower extremity Plan:: We will refill the patient's gabapentin 600 mg 1 tablet p.o. 5 times daily. He will only get 3 months of this medication. We will decrease back down to 4 times daily once the patient's device is working properly again. We will schedule him for 3-month follow-up. We will see him back in the clinic to follow-up with him for medication refill and to reassess that the device is working properly. He will contact the medical representative for [employer] if he has any issues before then or our clinic. Patient has been instructed to contact the clinic with any concerns before the next appointment. Dr. Katz has reviewed this note and agrees with this plan of care. This note was dictated using voice recognition software and make contain errors or omissions. [facility] History I have reviewed the patient's past medical history: Yes Medical History: Reports:: Congestive Heart Failure, Chronic Obstructive Pulmonary Disease (COPD), Coronary Artery Disease, Diabetes Mellitus Type 2, Gastroesophageal Reflux Disease(GERD), Hypertension, Myocardial Infarction, Seizures (2010) Denies:: Cancer, Diabetes Mellitus Type 1, Internal Pacemaker, MRSA *Have you ever received a pneumonia vaccine?: No *Have you received a flu vaccine this season?: No Other Medical History: Denies: Blood Transfusion Reaction Laterality Cases: Right: Arthroscopy Shoulder Other Surgeries: Yes:
== END ==
PROVIDERS: Visit Provider Clinical Nurse Specialist Family Health
DX: M51.16 Intervertebral disc disorders with radiculopathy, lumbar region (principal); G57.70 Causalgia of unspecified lower limb
CPT/HCPCS: 99212; G0463